=== PATIENT | male | born 1960 | race Caucasian/White ===

== ENCOUNTER 2018-01-13 14:42 | Emergency (ER) | payer OTHER ==
[~2018-01-13] VITALS: Ht 185.4 cm; Wt 98.0 kg
[2018-01-13 14:45] VITALS: BP 119/93
[2018-01-13] MEDS ORDERED: FLEXERIL10 MG PO (16:42)
[2018-01-13] MEDS ORDERED: MOTRIN800 MG PO (16:44)
== END 2018-01-13 17:16 | disposition home or self-care (01) ==
LOC: EME 14:42
DX: S80.211A Abrasion, right knee, initial encounter (principal); S80.212A Abrasion, left knee, initial encounter; M25.562 Pain in left knee; V19.3XXA Pedal cyclist (driver) (passenger) injured in unspecified nontraffic accident, initial encounter; Y93.55 Activity, bike riding
CPT/HCPCS: 72100; 73564; 99281; 99284